=== PATIENT | male | born 1990 | race Two or more races ===

== ENCOUNTER 2023-02-08 12:29 | Emergency (ER) | payer MEDICAID, OTHER | END 2023-02-08 12:50 | disposition left against medical advice (07) | LOC: ER 12:29 → EDBD 12:29 → ER 12:50 | DX: R21 Rash and other nonspecific skin eruption (principal); Z53.21 Procedure and treatment not carried out due to patient leaving prior to being seen by health care provider ==

== ENCOUNTER 2023-06-29 16:56 | Emergency (ER) | payer MEDICAID | END 2023-06-29 17:05 | disposition left against medical advice (07) | LOC: EDBD 16:56 → ER 16:56 → EDUNIT# 16:56 → ER 17:05 | DX: F41.9 Anxiety disorder, unspecified (principal); Z53.21 Procedure and treatment not carried out due to patient leaving prior to being seen by health care provider ==